=== PATIENT | female | born 1935 | race Two or more races ===

== ENCOUNTER 2017-04-08 22:10 | Emergency (ER) | payer OTHER ==
[~2017-04-08] VITALS: Ht 149.9 cm; Wt 63.5 kg
[2017-04-08 22:15] VITALS: BP 128/63
== END 2017-04-08 23:37 | disposition home or self-care (01) ==
LOC: ER 22:11
DX: M17.0 Bilateral primary osteoarthritis of knee (principal)
CPT/HCPCS: 73564 ×2; 73700; 99284; A4606; Z7610

== ENCOUNTER 2017-10-19 03:23 | Emergency (ER) | payer OTHER ==
[~2017-10-19] VITALS: Ht 134.6 cm; Wt 69.4 kg
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
--- NOTE | 2017-10-19 04:02 | NUR ---
DR. CORTEZ AT BEDSIDE FOR EVAL, KIA FLOYD AT [facility] TO TRANSLATE.
[2017-10-19] MEDS ORDERED: ALPRAZOLAM 0.5 MG TABLET ONE (04:14)
[2017-10-19] MEDS ORDERED: ALPRAZOLAM 0.5 MG TABLET PO ONE (04:30)
[2017-10-19 04:49] LABS: APPEARANCE,URINE CLEAR (CLEAR); BILIRUBIN,URINE NEGATIVE (NEGATIVE); BLOOD, URINE 3+ Ery/uL (NEGATIVE); COLOR,URINE YELLOW (YELLOW); KETONES,URINE NEGATIVE (NEGATIVE); LEUKOCYTE ESTERASE ,URINE 1+ (NEGATIVE); NITRITE, URINE POSITIVE (NEGATIVE); PH,URINE 5.5 (5.0-8.0); PROTEIN,URINE NEGATIVE (NEGATIVE); UGLUCOSE NEGATIVE (NEGATIVE); UROBILINOGEN,URINE 0.2 EU/dL (0.2)
[2017-10-19 04:53] LABS: BACTERIA,URINE Many /HPF (None Seen); SQUAMOUS EPITHELIAL CELL,UR Many /HPF (None Seen)
[2017-10-19] MEDS ORDERED: NITROFURANTOIN/NITROFURAN MAC 100 MG CAPSULE PO ONE (05:00)
[2017-10-19] MEDS ORDERED: NITROFURANTOIN/NITROFURAN MAC 100 MG CAPSULE ONE (05:04)
--- NOTE | 2017-10-19 05:12 | NUR ---
Patient discharged with family to home in stable condition. Written and verbal after care instructions given. Patient verbalizes understanding of instruction. Patient ambulatory with a cane.
[2017-10-19 05:14] VITALS: BP 153/84
== END 2017-10-19 05:14 | disposition home or self-care (01) ==
LOC: ER 03:24
DX: F41.9 Anxiety disorder, unspecified (principal); N39.0 Urinary tract infection, site not specified; R42 Dizziness and giddiness; I10 Essential (primary) hypertension
CPT/HCPCS: 81000-TC; 87086-TC; 87186-TC; A4606; Z7610

== ENCOUNTER 2018-12-28 13:59 | Emergency (ER) | payer OTHER ==
[~2018-12-28] VITALS: Ht 149.9 cm; Wt 70.8 kg
--- NOTE | 2018-12-28 14:21 | NUR ---
PT L SHOULDER PAIN X 1 WEEK. DENIES ANY RECENT TRAUMA. PT IS AAOX3, NOT IN RSEPIRATORY DISTRESS, V/S STABLE, KEPT RESTED AND COMFORTABLE, WILL CONTINUE TO MONITOR.
[2018-12-28] MEDS ORDERED: VALS320T16 PO (14:33)
--- NOTE | 2018-12-28 14:49 | NUR ---
SEEN AND EXAMINED BY DR. NUNEZ.
--- NOTE | 2018-12-28 15:10 | NUR ---
REMOTE CODERS AT BEDSIDE FOR XRAY.
[2018-12-28] MEDS ORDERED: HYDROCODONE/APAP 5/325MG 1 EACH TABLET ONE (15:38)
[2018-12-28] MEDS ORDERED: IBUPROFEN 600 MG TABLET PO ONE (15:39)
[2018-12-28] MEDS: HYDROCODONE/APAP 5/325MG 1 EACH TABLET PO ONE (15:40)
[2018-12-28] MEDS: IBUPROFEN 600 MG TABLET PO ONE (15:40)
[2018-12-28 16:04] VITALS: BP 127/75
--- NOTE | 2018-12-28 16:04 | NUR ---
Patient discharged to home in stable condition. Written and verbal after care instructions given. Patient verbalizes understanding of instruction.
== END 2018-12-28 16:06 | disposition home or self-care (01) ==
LOC: ER 13:59
DX: M19.012 Primary osteoarthritis, left shoulder (principal); M25.512 Pain in left shoulder; I10 Essential (primary) hypertension; Z98.890 Other specified postprocedural states
CPT/HCPCS: 73030-TC

== ENCOUNTER 2019-03-05 18:17 | Emergency (ER) | payer OTHER ==
[~2019-03-05] VITALS: Ht 152.4 cm; Wt 79.4 kg
[~2019-03-05 18:17] MED LIST: VALS320T16 PO
[2019-03-05 18:51] VITALS: BP 111/60
== END 2019-03-05 19:11 | disposition home or self-care (01) ==
LOC: ER 18:18
DX: B02.9 Zoster without complications (principal); I10 Essential (primary) hypertension; Z98.890 Other specified postprocedural states; Z79.899 Other long term (current) drug therapy

== ENCOUNTER 2019-07-17 18:02 | Emergency (ER) | payer OTHER ==
[~2019-07-17] VITALS: Ht 147.3 cm; Wt 74.9 kg
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
[2019-07-17] MEDS ORDERED: METOCLOPRAMIDE HCL 10 MG/2 ML VIAL ONE (18:48)
[2019-07-17] MEDS ORDERED: diphenhydrAMINE HCL 50 MG/ML VIAL ONE (18:48)
[2019-07-17] MEDS ORDERED: METOCLOPRAMIDE HCL 10 MG/2 ML VIAL IV ONE (19:00)
[2019-07-17] MEDS ORDERED: diphenhydrAMINE HCL 50 MG/ML VIAL IV ONE (19:00)
[2019-07-17] MEDS ORDERED: IV NS 0.9% 1,000 ML BAG IV ONE (19:00)
[2019-07-17 19:17] LABS: BASOPHILS % (AUTO) 0.6 % (0.0-2.0); EOSINOPHILS % (AUTO) 0.9 % (0.0-6.0); HEMATOCRIT 37 % (33-45); HEMOGLOBIN 12.5 g/dL (11.5-14.8); LYMPHOCYTES % (AUTO) 28.3 % (20.0-44.0); MEAN CORPUSCULAR HGB CONC 34 g/dl (31.0-36.0); MEAN CORPUSCULAR VOLUME 91 fL (82-100); MONOCYTES # (AUTO) 0.8 /CMM (0.1-1.30); MONOCYTES % (AUTO) 10.8 % (2.0-12.0); NEUTROPHILS # (AUTO) 4.3 /CMM (1.8-8.9); NEUTROPHILS % (AUTO) 59.4 % (43.0-81.0); PLATELET COUNT (AUTO) 237 /CMM (150-450); RED BLOOD CELL COUNT(AUTO) 4.08 MIL/uL (4.0-5.2); WHITE BLOOD COUNT (AUTO) 7.2 K/uL (4.3-11.0)
[2019-07-17 19:32] LABS: CALCIUM, SERUM 8.3 mg/dL (8.5-10.1); CREATININE 0.7 mg/dL (0.6-1.3); POTASSIUM 3.6 mmol/L (3.5-5.1)
--- NOTE | 2019-07-17 19:33 | NUR ---
endorsed to jennifer taylor
--- NOTE | 2019-07-17 19:36 | NUR ---
PT RESTING IN BED, NAD NOTED. WILL CONTINUE TO MONITOR.
--- NOTE | 2019-07-17 21:51 | NUR ---
Patient discharged to home in stable condition. Written and verbal after care instructions given. Patient verbalizes understanding of instruction. IV removed. Catheter intact and site benign. Pressure and 4x4 applied to site. No bleeding noted.
[2019-07-17 21:52] VITALS: BP 144/72
== END 2019-07-17 21:53 | disposition home or self-care (01) ==
LOC: ER 18:05
DX: G43.909 Migraine, unspecified, not intractable, without status migrainosus (principal); I10 Essential (primary) hypertension; M19.90 Unspecified osteoarthritis, unspecified site; Z98.890 Other specified postprocedural states; Z79.899 Other long term (current) drug therapy
CPT/HCPCS: 36415; 70450; 80048; 85025; 85652; 96374; 96375; 99284; J1200; J2765; J7030